=== PATIENT | male | born 1935 | race Caucasian/White ===

== ENCOUNTER 2017-11-26 15:12 | Outpatient (CLI) | payer MEDICARE, OTHER ==
[2014-09-14 15:15] VITALS: BP 156/77
--- NOTE | 2017-11-26 20:10 | Diagnostic Imaging Report ---
AMANDA AZEVEDO (ERIKA) - OP [facility] [address] [facility].[address] [id number] Report Submission Date: Nov 26, 2017 3:56:51 PM STE[employer] Patient Study Name: MIKE GEORGE Date: Nov 26, 2017 3:24:54 PM [employer]RA[employer] Modality Type: CR Gender: M Description: PELVIS : 31 Institution: [facility] Physician: AMANDA AZEVEDO (ERIKA) - OP AP pelvis and right hip 2 view History: Right hip pain Findings: Multilevel lumbar spondylosis and left inguinal hernia repair are observed. The osseous pelvis and right proximal femur are intact without fracture, dislocation, or focal bone lesion. Mild right hip cartilage loss is observed. Impression: Lumbar spondylosis and early right hip osteoarthritis. Electronically signed on Nov 26, 2017 3:56:51 PM STEEL DIE ENGRAVER by: Scott VALENTINE
--- NOTE | 2017-11-26 20:10 | Diagnostic Imaging Report ---
AMANDA AZEVEDO (ERIKA) - OP [facility] [address] [facility].[address] 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 Grade I degenerative L5/S1 spondylolisthesis is present. Atherosclerotic calcification and left inguinal hernia repair are noted. There is no fracture or spondylolysis. Impression: Multilevel lumbar spondylosis without fracture. Electronically signed on Nov 26, 2017 3:56:02 PM HOME CARE RN by: Scott VALENTINE
== END 2017-11-26 15:13 ==
LOC: RAD 15:12
PROVIDERS: ATTEND Nurse Practitioner Family
DX: M25.551 Pain in right hip (principal); R10.30 Lower abdominal pain, unspecified; R03.1 Nonspecific low blood-pressure reading
CPT/HCPCS: 72100; 73502

== ENCOUNTER 2018-05-19 13:06 | Outpatient (CLI) | payer OTHER ==
[2014-09-14 15:15] VITALS: BP 156/77
[2018-05-19 13:44] LABS: eGFR (African) > 60; eGFR (Non-African) > 60
== END 2018-05-19 13:07 ==
LOC: LAB 13:06
PROVIDERS: ATTEND Nurse Practitioner Family
DX: E11.9 Type 2 diabetes mellitus without complications (principal); E03.9 Hypothyroidism, unspecified
CPT/HCPCS: 36415; 80053; 82043; 83036; 84443